=== PATIENT | female | born 1990 | race Caucasian/White ===

== ENCOUNTER 2018-11-17 19:41 | Observation (INO) | payer OTHER ==
[~2018-11-17] VITALS: Ht 165.1 cm; Wt 49.9 kg
[~2018-11-17 19:41] MED LIST: FLUT16SP19 NS; GUIDMUD PO; NORG1TAB2 PO; OXYM3SPR NS; SULF-170 PO; [UNRECOGNIZED DRUG - OTHER] PO
--- NOTE | 2018-11-17 19:50 | ER Report ---
History and Physical Time Seen By MD: 19:50 Hx. of Stated Complaint: n/v/d since 9am. fever of 102. taking pepto HPI/ROS CHIEF COMPLAINT: Abdominal pain, nausea, vomiting, fever HISTORY OF PRESENT ILLNESS: 28-year-old female patient presents to emergency room with complaint of abdominal pain, nausea, vomiting and fever. Patient states this started today. Patient states she's been able to keep some fluids down today. She states that she was concerned about the fever and this brought her in. She states that she does have some right lower quadrant abdominal pain. Patient states she did take some Pepto-Bismol which seemed to help. She states last time she vomited was approximately 3:00 this afternoon. REVIEW OF SYSTEMS: Respiratory: No cough, no dyspnea. Cardiovascular: No chest pain, no palpitations. Gastrointestinal: As noted above Musculoskeletal: No back pain. Allergies: Coded Allergies: amoxicillin (Verified Allergy, Unknown, 11/17/18) clavulanic acid (Verified Allergy, Unknown, 11/17/18) Home Meds Reported Medications Fluticasone Prop 50 Mcg Ns (FLONASE 50 MCG NS) 16 Gm [place].susp, 2 SPRAYS NS QDAY, BOT 08/22/17 Past Medical/Surgical History Patient has a past medical history of arthritis, left wrist fracture, social al cohol use. Patient has surgical history of tonsillectomy. Reviewed Nurses Notes: Yes Smoking Status: Never Smoker Constitutional Vital Sign - Last 24 Hours 11/17/18 11/17/18 11/17/18 11/17/18 19:45 19:45 19:56 20:00 Temp 99.5 Pulse 100 Resp 12 B/P (MAP) 131/91 131/91 (104) 107/65 (79) Pulse Ox 92 96 O2 Delivery Room Air 11/17/18 11/17/18 11/17/18 11/17/18 20:26 20:30 20:41 21:09 Pulse 100 108 B/P (MAP) 102/68 (79) 125/88 (100) Pulse Ox 96 96 11/17/18 11/17/18 11/17/18 11/17/18 21:11 21:16 21:30 21:31 Pulse 104 101 110 B/P (MAP) 121/75 (90) Pulse Ox 94 96 98 11/17/18 11/17/18 11/17/18/31/18 21:46 21:51 22:00 22:06 Pulse 110 109 ??? B/P (MAP) ???/??? (1665) Pulse Ox 96 96 Physical Exam General Appearance: The patient is alert, has no immediate need for airway protection and no current signs of toxicity. Respiratory: Chest is non tender, lungs are clear to auscultation. Cardiac: regular rate and rhythm Gastrointestinal: Abdomen is soft and tender in the right lower quadrant, no masses, bowel sounds normal. Musculoskeletal: Neck: Neck is supple and non tender. Extremities have full range of motion and are non tender. Skin: No rashes or lesions. DIFFERENTIAL DIAGNOSIS: After history and physical exam differential diagnosis was considered for abdominal pain including but not limited to appendicitis, cholecystitis, gastritis and urinary tract infection. Medical Decision Making Data Points Result Diagram: 11/17/18200911/17/182009 Laboratory Hematology Test 11/17/18 19:47 11/17/18 20:09 11/17/18 20:10 Influenza Virus Type A (PCR) Negative (NEGATIVE) Influenza Virus Type B (PCR) Negative (NEGATIVE) Urine Color Straw Urine Clarity Clear Urine pH 5.0 pH (4.8-9.5) Urine Specific [place] 1.010 Urine Protein Negative mg/dL (NEGATIVE) Urine Glucose (UA) Negative mg/dL (NEGATIVE) Urine Ketones Negative mg/dL (NEGATIVE) Urine Blood Negative (NEGATIVE) Urine Nitrite Negative (NEGATIVE) Urine Bilirubin Negative (NEGATIVE) Urine Urobilinogen Negative mg/dL (0.2-1.9) Urine Leukocyte Esterase Negative (NEGATIVE) Urine RBC <1 /HPF (0-2/HPF) Urine WBC 1 /HPF (0-5/HPF) Urine Squamous Epithelial Cells Few /LPF (</=FEW) Urine Bacteria Negative /HPF (NONE-FEW) Urine Mucus Few /HPF (NONE-FEW) Red Blood Count 5.05 M/uL (4.17-5.56) Mean Corpuscular Volume 90.1 fL (80.0-96.0) Mean Corpuscular Hemoglobin 30.2 pg (26.0-33.0) Mean Corpuscular Hemoglobin Concent 33.5 g/dL (32.0-36.0) Red Cell Distribution Width 13.0 % (11.5-14.5) Mean Platelet Volume 9.5 fL (7.2-11.1) Neutrophils (%) (Auto) 92.1 % (39.4-72.5) Lymphocytes (%) (Auto) 3.4 % (17.6-49.6) Monocytes (%) (Auto) 2.5 % (4.1-12.4) Eosinophils (%) (Auto) 0.9 % (0.4-6.7) Basophils (%) (Auto) 1.1 % (0.3-1.4) Nucleated RBC Relative Count (auto) 0.0 /100WBC Neutrophils # (Auto) 15.7 K/uL (2.0-7.4) Lymphocytes # (Auto) 0.6 K/uL (1.3-3.6) Monocytes # (Auto) 0.4 K/uL (0.3-1.0) Eosinophils # (Auto) 0.1 K/uL (0.0-0.5) Basophils # (Auto) 0.2 K/uL (0.0-0.1) Nucleated RBC Absolute Count (auto) 0.00 K/uL Peripheral Blood Smear Yes Y/N Sodium Level 138 mmol/L (137-145) Potassium Level 3.7 mmol/L (3.5-5.0) Chloride Level 105 mmol/L (98-107) Carbon Dioxide Level 20 mmol/L (22-31) Blood Urea Nitrogen 10 mg/dl (7-18) Creatinine 0.70 mg/dl (0.52-1.04) Glomerular Filtration Rate Calc > 60.0 Random Glucose 134 mg/dl (75-110) Calcium Level 9.3 mg/dl (8.4-10.2) Total Bilirubin 0.8 mg/dl (0.2-1.3) Aspartate Amino Transf (AST/SGOT) 22 U/L (0-35) Alanine Aminotransferase (ALT/SGPT) 19 U/L (0-56) Alkaline Phosphatase 60 U/L (0-126) C-Reactive Protein 1.9 mg/dl (<1.0) Total Protein 7.7 g/dl (6.3-8.2) Albumin 4.4 g/dl (3.5-5.0) Amylase Level 127 U/L (0-110) Lipase 65 U/L (23-300) Human Chorionic Gonadotropin, Qual Negative (NEGATIVE) Chemistry Test 11/17/18 19:47 11/17/18 20:09 11/17/18 20:10 Influenza Virus Type A (PCR) Negative (NEGATIVE) Influenza Virus Type B (PCR) Negative (NEGATIVE) Urine Color Straw Urine Clarity Clear Urine pH 5.0 pH (4.8-9.5) Urine Specific [place] 1.010 Urine Protein Negative mg/dL (NEGATIVE) Urine Glucose (UA) Negative mg/dL (NEGATIVE) Urine Ketones Negative mg/dL (NEGATIVE) Urine Blood Negative (NEGATIVE) Urine Nitrite Negative (NEGATIVE) Urine Bilirubin Negative (NEGATIVE) Urine Urobilinogen Negative mg/dL (0.2-1.9) Urine Leukocyte Esterase Negative (NEGATIVE) Urine RBC <1 /HPF (0-2/HPF) Urine WBC 1 /HPF (0-5/HPF) Urine Squamous Epithelial Cells Few /LPF (</=FEW) Urine Bacteria Negative /HPF (NONE-FEW) Urine Mucus Few /HPF (NONE-FEW) White Blood Count 17.1 k/uL (4.5-11.0) Red Blood Count 5.05 M/uL (4.17-5.56) Hemoglobin 15.2 g/dL (12.0-16.0) Hematocrit 45.6 % (34.0-47.0) Mean Corpuscular Volume 90.1 fL (80.0-96.0) Mean Corpuscular Hemoglobin 30.2 pg (26.0-33.0) Mean Corpuscular Hemoglobin Concent 33.5 g/dL (32.0-36.0) Red Cell Distribution Width 13.0 % (11.5-14.5) Platelet Count 254 K/uL (150-450) Mean Platelet Volume 9.5 fL (7.2-11.1) Neutrophils (%) (Auto) 92.1 % (39.4-72.5) Lymphocytes (%) (Auto) 3.4 % (17.6-49.6) Monocytes (%) (Auto) 2.5 % (4.1-12.4) Eosinophils (%) (Auto) 0.9 % (0.4-6.7) Basophils (%) (Auto) 1.1 % (0.3-1.4) Nucleated RBC Relative Count (auto) 0.0 /100WBC Neutrophils # (Auto) 15.7 K/uL (2.0-7.4) Lymphocytes # (Auto) 0.6 K/uL (1.3-3.6) Monocytes # (Auto) 0.4 K/uL (0.3-1.0) Eosinophils # (Auto) 0.1 K/uL (0.0-0.5) Basophils # (Auto) 0.2 K/uL (0.0-0.1) Nucleated RBC Absolute Count (auto) 0.00 K/uL Peripheral Blood Smear Yes Y/N Glomerular Filtration Rate Calc > 60.0 Calcium Level 9.3 mg/dl (8.4-10.2) Total Bilirubin 0.8 mg/dl (0.2-1.3) Aspartate Amino Transf (AST/SGOT) 22 U/L (0-35) Alanine Aminotransferase (ALT/SGPT) 19 U/L (0-56) Alkaline Phosphatase 60 U/L (0-126) C-Reactive Protein 1.9 mg/dl (<1.0) Total Protein 7.7 g/dl (6.3-8.2) Albumin 4.4 g/dl (3.5-5.0) Amylase Level 127 U/L (0-110) Lipase 65 U/L (23-300) Human Chorionic Gonadotropin, Qual Negative (NEGATIVE) Urinalysis Test 11/17/18 20:09 Urine Color Straw Urine Clarity Clear Urine pH 5.0 pH (4.8-9.5) Urine Specific [place] 1.010 Urine Protein Negative mg/dL (NEGATIVE) Urine Glucose (UA) Negative mg/dL (NEGATIVE) Urine Ketones Negative mg/dL (NEGATIVE) Urine Blood Negative (NEGATIVE) Urine Nitrite Negative (NEGATIVE) Urine Bilirubin Negative (NEGATIVE) Urine Urobilinogen Negative mg/dL (0.2-1.9) Urine Leukocyte Esterase Negative (NEGATIVE) Urine RBC <1 /HPF (0-2/HPF) Urine WBC 1 /HPF (0-5/HPF) Urine Squamous Epithelial Cells Few /LPF (</=FEW) Urine Bacteria Negative /HPF (NONE-FEW) Urine Mucus Few /HPF (NONE-FEW) EKG/Imaging Imaging EXAMINATION: CT abdomen and pelvis with contrast COMPARISON: None. HISTORY: abdominal pain PROCEDURE: Multiplanar contrast enhanced CT of the abdomen and pelvis with 75 mL intravenous Isovue 370. One of the following dose optimization techniques was utilized in the performance of this exam: Automated exposure control; adjustment of the mA and/or kV according to the patient's size; or use of an iterative reconstruction technique. Specific details can be referenced in the facility's radiology CT exam operational policy. FINDINGS: Visualized thorax: Negative. Liver: Negative. Gallbladder and biliary system: Negative Spleen: Negative. Pancreas: Negative. Adrenal glands: Negative. Kidneys and bladder: Right kidney lower pole gently lobulated 3.4 x 4.2 x 2.7 cm simple cyst. No renal mass, hydronephrosis, or evidence of parenchymal inflamma tion. Urinary bladder is unremarkable. Vessels: Within normal limits. Bowel and mesentery: Stomach is within normal limits. There are a few prominent fluid-filled loops of distal small bowel. Borderline dilated 8 mm fluid-filled appendix with questionable mild mucosal hyperemia. A few tiny calcified appendicoliths are present within the proximal and mid appendix. No definite periappendiceal inflammation is identified. Small amount of stool in the colon. No other evidence of bowel or mesenteric inflammation. Pelvic organs: Negative. Lymph nodes: No adenopathy. Free air/free fluid: None. Abdominal wall and osseous structures: Negative. IMPRESSION: 1. Equivocal CT evaluation of the appendix. The appendix is borderline dilated at 8 mm and there is questionable mild mucosal hyperemia but no evidence of periappendiceal inflammation. Continued clinical observation is recommended with surgical consultation as clinically indicated. 2. Mildly prominent fluid-filled loops of distal small bowel. This is nonspecific and could be within normal limits although a gastroenteritis could be considered in the appropriate setting as well. Results were discussed with LOPEZ NUNEZ at 11/17/2018 9:28 PM. Report Dictated By: Guido Deluna MD at 11/17/2018 9:19 PM Report E-Signed By: Guido Deluna MD at 11/17/2018 9:31 PM ED Course/Re-evaluation ED Course Patient was admitted to examined, history and physical obtained. Differential diagnoses were considered. On examination patient does have tenderness to the right lower quadrant as well as the periumbilical region. A CBC, CMP, urinalysis, CT scan of the abdomen and pelvis were done. Patient did have an elevated white count of 17,[address] scan of the abdomen and pelvis showed an 8 mm slightly dilated appendix with fluid in the middle, radiologist was unable to rule out an early uncomplicated appendicitis. I discussed the case with Dr. Serrato, surgeon, and together we decided to admit the patient for observation and reevaluation the morning. If she has persistent pain at that time he go ahead and do an appendectomy. If symptoms are improved he'll go ahead and discharge her at that time. I discussed the plan with the patient. She verbalized understanding and agreement. We will go ahead and admit her to the floor. We'll treat her with Levaquin and Flagyl. Decision to Disposition Date: Nov 17, 2018 Decision to Disposition Time: 22:22 Depart Departure Latest Vital Signs Vital Signs Date Time Temp Pulse Resp B/P (MAP) Pulse Ox O2 Delivery O2 Flow Rate FiO2 11/17/18 22:06 ??? 11/17/18 22:00 ???/??? (1665) 11/17/18 21:51 96 11/17/18 19:45 99.5 12 Room Air Impression: Primary Impression: Right lower quadrant abdominal pain Condition: Condition Unchanged Disposition: Admitted from ER LOPEZ NUNEZ Nov 17, 2018 19:50
[2018-11-17] MEDS ORDERED: NS(*) 0.9% 1000 ML BAG 1,000 ML IV ONE (19:55)
[2018-11-17] MEDS ORDERED: IOPAMIDOL 76% 75 ML INFUS BTL 75 ML ONE (20:21)
[2018-11-17 20:25] LABS: PLATELET COUNT, AUTOMATED 254 K/uL (150-450)
--- NOTE | 2018-11-17 21:35 | RADIOLOGY IMAGING REPORT ---
FACILITY: [facility] PATIENT NAME: Lia Suarez : 1990 MR: [id number] V: [id number] EXAM DATE: [id number] ORDERING PHYSICIAN: LOPEZ NUNEZ TECHNOLOGIST: Location: [facility] Patient: Lia Suarez : 1990 Visit/Account:[id number] Date of Sevice: 11/17/2018 EXAMINATION: CT abdomen and pelvis with contrast COMPARISON: None. HISTORY: abdominal pain PROCEDURE: Multiplanar contrast enhanced CT of the abdomen and pelvis with 75 mL intravenous Isovue 3 70. One of the following dose optimization techniques was utilized in the performance of this exam: A utomated exposure control; adjustment of the mA and/or kV according to the patient's size; or use of an iterative reconstruction technique. Specific details can be referenced in the facility's radiolo gy CT exam operational policy. FINDINGS: Visualized thorax: Negative. Liver: Negative. Gallbladder and biliary system: Negative Spleen: Negative. Pancreas: Negative. Adrenal glands: Negative. Kidneys and bladder: Right kidney lower pole gently lobulated 3.4 x 4.2 x 2.7 cm simple cyst. No bautista al mass, hydronephrosis, or evidence of parenchymal inflammation. Urinary bladder is unremarkable. Vessels: Within normal limits. Bowel and mesentery: Stomach is within normal limits. There are a few prominent fluid-filled loops o f distal small bowel. Borderline dilated 8 mm fluid-filled appendix with questionable mild mucosal h yperemia. A few tiny calcified appendicoliths are present within the proximal and mid appendix. No definite periappendiceal inflammation is identified. Small amount of stool in the colon. No other e vidence of bowel or mesenteric inflammation. Pelvic organs: Negative. Lymph nodes: No adenopathy. Free air/free fluid: None. Abdominal wall and osseous structures: Negative. IMPRESSION: 1. Equivocal CT evaluation of the appendix. The appendix is borderline dilated at 8 mm and there is questionable mild mucosal hyperemia but no evidence of periappendiceal inflammation. Continued clin ical observation is recommended with surgical consultation as clinically indicated. 2. Mildly prominent fluid-filled loops of distal small bowel. This is nonspecific and could be with in normal limits although a gastroenteritis could be considered in the appropriate setting as well. Results were discussed with LOPEZ NUNEZ at 11/17/2018 9:28 PM. Report Dictated By: Guido Deluna MD at 11/17/2018 9:19 PM Report E-Signed By: Guido Deluna MD at 11/17/2018 9:31 PM WSN:[id number]
[2018-11-17] MEDS ORDERED: metroNIDAZOLE* 500MG/100ML BAG 100 ML IVPB ONE (22:00)
[2018-11-17] MEDS ORDERED: LEVOFLOXACIN/D5W*500 MG/100 ML 100 ML IVPB ONE (22:00)
[2018-11-17 22:30] VITALS: BP 125/74
[2018-11-17] MEDS ORDERED: NS(*) 0.9% 1000 ML BAG 1,000 ML IV PRN (22:35)
[2018-11-17] MEDS ORDERED: ONDANSETRON 4 MG/2 ML VIAL IVP PRN (22:35)
[2018-11-17] MEDS ORDERED: MORPHINE 2 MG/ML SYR IVP PRN (22:35)
[2018-11-17] MEDS: ACETAMINOPHEN 325 MG TAB PO PRN (23:36)
[2018-11-17] MEDS: LEVOFLOXACIN/D5W*500 MG/100 ML 100 ML IVPB SCH (23:38)
[2018-11-18] VITALS (16 sets, daily range): BP systolic 98–125; BP diastolic 51–77; Ht 165.1 cm; Wt 49.9 kg
[2018-11-18] MEDS: metroNIDAZOLE* 500MG/100ML BAG 100 ML IVPB SCH ×4 (08:19→23:40)
[2018-11-18] MEDS ORDERED: BUPIVACAINE/EPI 0.5% 50ML VIAL INFIL ONE (08:25)
--- NOTE | 2018-11-18 08:30 | Gen Surgery History & Physical ---
History of Present Illness Chief Complaint abd pain, fever History of Present Illness 28 yo f with low mid abd pain beginning yesterday. also some pain in rlq. +vomiting. fever 102 at home. diarrhea. no blood in stool. no similar recent pain. pain is improved this am. pmh/psh: heart murmur social hx: 3-4 drinks/wk, no cigs History Home Meds Reported Medications Fluticasone Prop 50 Mcg Ns (FLONASE 50 MCG NS) 16 Gm [place].susp, 2 SPRAYS NS QDAY, BOT 08/22/17 Allergies: Coded Allergies: amoxicillin (Verified Allergy, Unknown, 11/17/18) clavulanic acid (Verified Allergy, Unknown, 11/17/18) Patient History: Autoimmune disorder FATHER FH: asthma BROTHER OR SISTER BROTHER OR SISTER FH: skin cancer MOTHER FHx: allergies BROTHER OR SISTER BROTHER OR SISTER No Family History of: Autoimmune disorder Review of Systems Constitutional: Other (10 pt ros neg except per hpi) Exam General Appearance: Alert, Awake, No Acute Distress Neuro: No Gross deficits Eyes: Other (per, eomi) ENT: Moist Mucous Membranes Neck: No Masses Cardiovascular: Other (reg rate) Respiratory: No Respiratory Distress GI: Other (soft, nd, mild ttp rlq) Extremities: Other (no pitting edema) Integumentary: Skin Intact without Lesion / Mass Psych: Alert & Oriented X3, Appropriate Mood & Affect Medical Decision Making Data Points Result Diagram: 11/17/18200911/17/182009 Assessment and Plan Problems: (1) Right lower quadrant abdominal pain Status: Acute Assessment & Plan: We discussed that this may be appendicitis but could also be a virus. We discussed surgery vs conservative management with monitoring and antibiotics. pt elected laparoscopic appendectomy and i agree that this is reasonable. plan: npo, abx, lap appy Venous Thromboembolism VTE Risk Physician Assess for VTE Risk: Yes Patient's VTE Risk: Low Antithrombotics Is Pt On Any Antithrombotics?: No RASHMI THORNTON Nov 18, 2018 08:30
[2018-11-18] MEDS ORDERED: ONDANSETRON 4 MG/2 ML VIAL ONE (08:52)
[2018-11-18] MEDS ORDERED: KETOROLAC 30 MG/ML VIAL ONE (08:52)
[2018-11-18] MEDS ORDERED: DEXAMETHASONE SOD PHOS 10MG/ML ONE (08:52)
[2018-11-18] MEDS ORDERED: PROPOFOL EMUL(*) 10MG/ML 20 ML 20 ML ONE (08:52)
[2018-11-18] MEDS ORDERED: ROCURONIUM BROM 10 MG/ML 10 ML ONE (08:52)
[2018-11-18] MEDS ORDERED: NORMOSOL R SOLN(*) 1000 ML BAG 1,000 ML IV ONE (09:00)
[2018-11-18] MEDS ORDERED: SUGAMMADEX SOD 200 MG/2 ML SDV ONE (09:39)
[2018-11-18] MEDS ORDERED: fentaNYL CITR 100 MCG/2 ML AMP ONE (09:45)
[2018-11-18] MEDS ORDERED: traMADol 50 MG TAB PO PRN (09:55)
--- NOTE | 2018-11-18 10:08 | Post Operative Progress Note ---
Post Operative Progress Note Date: Nov 18, 2018 Time: 09:57 Surgeon: liam rose md dictation #[id number] Preboarder: none Anesthesia: gen, local anesthesiologist - dr. sawyer Pre-Op Diagnosis: rlq pain, likely acute appendicitis Post-Op Diagnosis: same Findings: inflammation distal appendix Procedure(s): lap appy Specimen Removed:(May be N/A): appendix Complications: none Fluids: iv crystalloid Estimated Blood Loss: minimal Date OP Note Dictated: Nov 18, 2018 Time OP Note Dictated: 09:59 RASHMI ROSE Nov 18, 2018 10:08
[2018-11-18] MEDS ORDERED: ACETAMINOPHEN(*)1000 MG/100 ML 100 ML IVPB ONE (10:36)
--- NOTE | 2018-11-18 10:38 | OPERATIVE REPORT 1 ---
EVENT DATE: November 18, 2018 SURGEON: Jalen Serrato MD ANESTHESIOLOGIST: Yared Varela M.D. ANESTHESIA: General and local. SPLICING SUPERVISOR: None PREOPERATIVE DIAGNOSIS Right lower quadrant pain, likely acute appendicitis. POSTOPERATIVE DIAGNOSIS Right lower quadrant pain, likely acute appendicitis. PROCEDURE PERFORMED Laparoscopic appendectomy. FLUIDS IV crystalloids. ESTIMATED BLOOD LOSS Minimal. SPECIMENS Appendix. COMPLICATIONS None. INDICATIONS This is a 28-year-old female with lower abdominal pain including right lower quadrant pain beginning yesterday. She had fever, vomiting and diarrhea. she had an elevated white blood count. CT scan showed possible inflammation of the appendix. I discussed with the patient the likelihood of appendicitis and the possibility that it may be a virus. She elected to proceed with appendectomy. The risks and benefits were explained and informed consent was signed. DESCRIPTION OF PROCEDURE Patient was taken to the operating room and placed in the supine position. General anesthesia was administered per the anesthesia team. Patient was prepped and draped in normal sterile fashion. Local analgesia was injected at the dermis above the umbilicus and a 5 mm vertical incision was made. The umbilical stalk was grasped and elevated. Veress needle was inserted. Pneumoperitoneum was achieved. Veress needle was removed. 5 mm port was advanced. After injecting local analgesia and under direct vision a 5 mm suprapubic port and a 12 mm left lower quadrant port were placed. I inspected the abdomen. There was no injury upon entry. The appendix was quickly identified. There was inflammation of the distal aspect of the appendix. A window was created in the mesoappendix at the base of the appendix and LigaSure was used to divide the mesoappendix. A 45 mm blue load laparoscopic stapler was fired across the base of the appendix. The appendix was removed with an Endo catch bag through the left lower quadrant port site. Right lower quadrant was irrigated and suctioned. Irrigant returned clear. Hemostasis was assured. I then inspected the pelvis, including the ovaries, and there were no abnormalities. I inspected the ileum beginning at the cecal valve and examining the bowel proximally. There was no Meckel's diverticulum. The remainder of what was seen of the small intestine and colon and gallbladder was within normal limits. I then again inspected the staple line. The staple line was intact. There was one area of oozing. 5 mm clip x2 was used to control this bleeding on the staple line. Hemostasis was confirmed. Fascial closure device with an 0 Vicryl was used to close the fascia of the left lower quadrant port site. Suprapubic port was removed under direct vision. Hemostasis was assured. Pneumoperitoneum was relieved. Final port was removed. All skin incisions were closed with 4-0 Monocryl subcuticular stitches. More local analgesia was injected. Appropriate dressings were applied. The patient tolerated the procedure well. There were no complications. [facility]
--- NOTE | 2018-11-18 10:42 | NUR ---
Acknowledged OR meds to clear Status Board for Patient Safety
[2018-11-18] MEDS: ACETAMINOPHEN 325 MG TAB PO PRN ×2 (16:05→22:31)
[2018-11-18] MEDS: LEVOFLOXACIN/D5W*500 MG/100 ML 100 ML IVPB SCH (22:32)
[2018-11-19 03:00] VITALS: BP 113/71
[2018-11-19] MEDS: ACETAMINOPHEN 325 MG TAB PO PRN (05:30)
[2018-11-19 06:13] LABS: PLATELET COUNT, AUTOMATED 184 K/uL (150-450)
--- NOTE | 2018-11-19 07:46 | General Surgery Progress Note ---
Subjective Progress Notes Subjective doing well. suzy po. some pain at [facility] Physical Exam Vital Signs Date Time Temp Pulse Resp B/P (MAP) Pulse Ox O2 Delivery O2 Flow Rate FiO2 11/19/18 03:00 98.5 75 16 113/71 (85) 92 Room Air Intake and Output 11/19/18 07:00 Intake Total 3355 ml Balance 3355 ml Intake Oral 1840 ml IV Total 1165 ml Other 350 ml # Voids 5 # Bowel Movements 1 GI: Other (abd soft) Result Diagram: 11/19/1852711/19/18527 Assessment and Plan Problems: (1) Right lower quadrant abdominal pain Status: Acute Assessment & Plan: We discussed that this may be appendicitis but could also be a virus. We discussed surgery vs conservative management with monitoring and antibiotics. pt elected laparoscopic appendectomy and i agree that this is reasonable. plan: npo, abx, lap appy 11/19: d/c home. f/u me 2 wks. Exam Sepsis Risk: No Definite Risk RASHMI THORNTON Nov 19, 2018 07:46
--- NOTE | 2018-11-19 07:50 | Hospitalist Depart ---
Discharge Summary Reason for Hosp/Final Diag: (1) Right lower quadrant abdominal pain Status: Acute Hospital Course & Plan: We discussed that this may be appendicitis but could also be a virus. We discussed surgery vs conservative management with monitoring and antibiotics. pt elected laparoscopic appendectomy and i agree that this is reasonable. plan: npo, abx, lap appy 11/19: doing well. suzy po. d/c home. f/u me 2 wks. Departure Weight (Pounds): 110 Result Diagram: 11/19/1852711/19/18527 Condition: Improved Discharge: Home Discharge Instructions Home Meds Reported Medications Fluticasone Prop 50 Mcg Ns (FLONASE 50 MCG NS) 16 Gm [place].susp, 2 SPRAYS NS QDAY, BOT 08/22/17 Diet: Regular Activity: No Heavy Lifting Special Instructions: ok to shower no lifting more than 15 lbs for 3 wks f/u me 2 wks ([phone]) Venous Thromboembolism Antithrombotics Is Pt On Any Antithrombotics?: No RASHMI THORNTON Nov 19, 2018 07:50
[2018-11-19 08:11] VITALS: BP 125/90
[2018-11-19] MEDS: metroNIDAZOLE* 500MG/100ML BAG 100 ML IVPB SCH (08:20)
[2018-11-19] MEDS ORDERED: FLUTICASONE PROP 0.05% 16 GM ENA SCH (09:00)
[2018-11-19] MEDS ORDERED: ENOXAPARIN 40 MG/0.4ML SYR SC SCH (09:00)
[2018-11-19] MEDS ORDERED: PANT40TA65 PO (14:00)
== END 2018-11-19 07:50 | disposition home or self-care (01) ==
LOC: ER 20:10 → INTOOBSV 22:07 → MED 22:07
PROVIDERS: ADMIT Surgery; ATTEND Surgery
DX: K35.80 Unspecified acute appendicitis (principal)
CPT/HCPCS: 36415; 44970; 74177; 81001; 82150; 83690; 84703; 85025; 86140; 87502; 88304; 96365; 96368; 96372; 99285; G0378; J0131; J1100; J1650; J1885; J1956; J2405; J2704; J3010; J3490; J7030; Q9967; 82040; 82247; 82310; 82374; 82435; 82565; 82947; 84075; 84132; 84155; 84295; 84450; 84460; 84520

== ENCOUNTER 2019-02-18 00:39 | Emergency (ER) | payer OTHER ==
[2018-11-18 12:08] VITALS: Wt 49.9 kg
[~2019-02-18 00:39] MED LIST changes: +PANT40TA65 PO
[2019-02-18 00:49] VITALS: BP 132/85
[2019-02-18] MEDS ORDERED: CLIN300C99 PO (01:18)
--- NOTE | 2019-02-18 01:20 | ER Report ---
History and Physical Time Seen By MD: 01:05 Hx. of Stated Complaint: FOREHEAD AND BRIDGE OF NOSE IS PAINFUL. DOES NOT REMEMBER WHAT HAPPENED. PT THINKS SHE POSSIBLY WAS SLEEP WALKING, SHE IS VERY CONFUSED ABOUT WHAT HAPPENED HPI/ROS CHIEF COMPLAINT: fall, head injury HISTORY OF PRESENT ILLNESS: Pt believes she may have been sleepwalking or at least dazed when she went to bathroom in middle of night. Recalls falling and striking forehead, but does not recall how she came to fall or what happened directly afterwards. was present and helped her up. She has been acting normally; initailly with mild forehead and bridge of nose pain. No epistaxis. No focal weakness. Now comfortable. Also notes 1 d ago lost crown of r raysa molar. Has no pain but is concerned about poss infection. REVIEW OF SYSTEMS: Constitutional: No fever, no chills. Eyes: No discharge. ENT: No sore throat. Cardiovascular: No chest pain, no palpitations. Respiratory: No cough, no shortness of breath. Gastrointestinal: No abdominal pain, no vomiting. Genitourinary: No hematuria. Musculoskeletal: No back pain. Skin: No rashes. Neurological: no ramsey other than mild frontal pain above Remainder of the 14 system rev: Yes Allergies: Coded Allergies: amoxicillin (Verified Allergy, Unknown, 02/18/19) clavulanic acid (Verified Allergy, Unknown, 02/18/19) Home Meds Active Scripts Clindamycin Hcl (CLINDAMYCIN HCL) 300 Mg Capsule, 300 MG PO Q6H for 7 Days, #28 CAPSULE Prov:HERBIE CURTIS MD 02/18/19 Pantoprazole Sodium (PANTOPRAZOLE SODIUM) 40 Mg Tablet.dr, 40 MG PO BID for 14 Days, #28 TAB.SR 0 Refills Prov:RASHMI THORNTON 11/19/18 Reported Medications Fluticasone Prop 50 Mcg Ns (FLONASE 50 MCG NS) 16 Gm [place].susp, 2 SPRAYS NS QDAY, BOT 08/22/17 Reviewed Nurses Notes: Yes Smoking Status: Never Smoker Hx Substance Use Disorder: No Hx Alcohol Use: Yes (social) Constitutional Vital Sign - Last 24 Hours 02/18/19 00:49 Temp 97.6 Pulse 82 Resp 12 B/P (MAP) 132/85 Pulse Ox 96 O2 Delivery Room Air Physical Exam General Appearance: The patient is alert, has no immediate need for airway protection and no signs of toxicity. [ ] Eyes: Pupils equal and round no pallor or injection. ENT, Mouth: Mucous membranes are moist. R mandibular molar tooth # 31 with sig decay, no surrounding edema, or TTP. Respiratory: There are no retractions, lungs are clear to auscultation. Cardiovascular: Regular rate and rhythm. no m/rg Neurological: alert, oriented x 3, cn ii-xii grossly intact, 5/5 ms, nl sensation throughout, nl gait, nl cerebellar Skin: Warm and dry, no rashes. Musculoskeletal: Neck is supple non tender. Extremities are nontender, nonswollen and have full range of motion. DIFFERENTIAL DIAGNOSIS: After history and physical exam differential diagnosis was considered for closed head injury, intracranial hemorrhage, anemia, or cause of syncope Medical Decision Making ED Course/Re-evaluation ED Course 30 f has ground level fall with minor closed head injury without high risk features. Low likelihood for ICH; agrees with plan to withhold CT. No clear underlying cause from hx/physical. She is comfortable going home with sig other, with strict rtn precautions. Of note, lost crown on mandibular molar with hx root canal. Has no pain at this point, but will rx abx to be initiated if pain, swelling, fever start. Decision to Disposition Date: Feb 18, 2019 Decision to Disposition Time: 01:16 Depart Departure Latest Vital Signs Vital Signs Date Time Temp Pulse Resp B/P (MAP) Pulse Ox O2 Delivery O2 Flow Rate FiO2 02/18/19 00:49 97.6 82 12 132/85 96 Room Air Impression: Primary Impression: Closed head injury Additional Impression: Dental cavity Condition: Improved Disposition: HOME OR SELF-CARE Referrals: BETO FORRESTER (PCP) 2 Days New Scripts Clindamycin Hcl (CLINDAMYCIN HCL) 300 Mg Capsule 300 MG PO Q6H for 7 Days, #28 CAPSULE Prov: HERBIE CURTIS MD 02/18/19 Patient Instructions: Concussion (ED), Dental Caries (ED) Additional Instructions: As we discussed, it is very unlikely that you have significant head injury, though you may have signs of concussion. Please return if you have worsening, concerning symptoms, or any other concerns. You do not have signs of dental infection at this point, but if you do develop pain, swelling, fever, you may start clindamycin prescription that we have given you. Problem Qualifiers Primary Impression: Closed head injury Encounter type: initial encounter Qualified Codes: S09.90XA - Unspecified injury of head, initial encounter HERBIE CURTIS MD Feb 18, 2019 01:20
== END 2019-02-18 01:23 | disposition home or self-care (01) ==
LOC: ER 01:10
DX: S09.90XA Unspecified injury of head, initial encounter (principal); K02.9 Dental caries, unspecified; W18.30XA Fall on same level, unspecified, initial encounter
CPT/HCPCS: 99281